=== PATIENT | female | born 1975 | race Caucasian/White ===

== ENCOUNTER → 2017-01-26 | Outpatient (CLI) | payer BC ==
[~2017-01-26] VITALS: Ht 157.5 cm; Wt 59.5 kg
[~2017-01-26] MED LIST: ACZONE60 G1 TP; FLONASE16 G1 BOTH NARES; KLOR-CON 1010 ME1 PO; MEGARED OMEGA-1 EAC2 PO; NUVIGIL200 MG PO; SOOLANTRA30 GM TP; SUPER B-50 COM1 EACH PO; SYNTHROID75 MCG PO; TACROLIMUS30 G1 TP; VITAMIN C1000 MG PO; VITAMIN D400 UNIT PO; ZADITOR EYE DROPS; ZANTAC150 MG PO; [UNRECOGNIZED DRUG - OTHER] TP
[2017-01-26 07:34] VITALS: BP 115/73
== END | disposition home or self-care (01) ==
LOC: IVINF 07:00
PROVIDERS: Family Medicine
DX: E27.40 Unspecified adrenocortical insufficiency (principal)
CPT/HCPCS: 80400; 82024 90; 82533 91; 96374; J0834